=== PATIENT | female | born 1975 | race Two or more races ===

== ENCOUNTER 2025-03-26 13:52 | Emergency (ER) | payer BC, OTHER ==
[~2025-03-26] VITALS: Ht 162.6 cm; Wt 104.0 kg
[2025-03-26 13:54] VITALS: BP 146/98; PULSE 74; RESP 16; TEMP 97.6; O2SAT 96
[2025-03-26] MEDS ORDERED: AUG875T PO (14:14)
[2025-03-26] MEDS ORDERED: IBUP1TAB5 PO (14:14)
--- NOTE | 2025-03-26 14:14 | ED.PDOC ---
History of Present Illness(SKN HPI Comments This is a 49-year-old female who comes in with a cat bite to her right hand on Thursday evening. She states that she was not as concerned because there was really no cut just puncture. Although Thursday she started to have some swelling and pain so today who is having some difficulty opening up her hands b ecause of the slowing. Her tetanus is up-to-date. No fever chills vomiting. Patient states that she is diabetic but has been checking her sugar and it has been fine. Chief Complaint: Animal Bite Time Seen by MD: 14:08 History of Present Illness: Nurses Notes, Medications, Allergies Allergies: Coded Allergies: NO KNOWN ALLERGIES (Unverified , 03/26/25) Information Source: Patient Mode of Arrival: Ambulatory Severity: Mild Past Medical History PAST MEDICAL HISTORY: DM, High Lipids Surgical History: Denies all surgeries Social History Smoker: Cigarettes Alcohol: Rarely Drugs: Denies Drug Use Lives In: Home Integumetry: reports: wounds (Cat bite right hand) All Other Systems: Reviewed and Negative Physical Exam General Appearance: No Apparent Distress, Normal HEENT: Normal ENT Inspection, PERRL/EOMI, Pharynx Normal Neck: Full Range of Motion, Non-Tender, Normal Inspection, Supple Respiratory: Lungs Clear, No Respiratory Distress, Normal Breath Sounds Cardiovascular: Regular Rate/Rhythm Breast Exam: Deferred Gastrointestinal: Non Tender, Normal Bowel Sounds, Soft Genitalia: Deferred Pelvic: Deferred Rectal: Deferred Extremities: Swelling, Tender, Other (Right hand with some warmth over the palmar aspect to visible puncture [place] no drainage no fluctuance no induration, able to open and close her fingers) Neurologic: Alert, Normal Affect, Normal Mood Cerebellar Function: Normal Reflexes: Normal Skin: Normal Color, Warm Lymphatic: No Adenopathy Was a procedure done? Was a procedure done?: No Differential Diagnosis (INTG) Differential Diagnosis: Contusion, Hematoma X-Ray, Labs, Meds, VS Vital Signs Date Time Temp Pulse Resp B/P (MAP) Pulse Ox O2 Delivery O2 Flow Rate FiO2 03/26/25 13:54 97.6 74 16 146/98 96 97.6 X-Ray, Labs, Meds, VS Comment Patient seen and examined by me. Patient has a cat bite from this past Thursday now getting infected. Her tetanus is up-to-date I will place her on antibiotics. Instructed her to elevate her arm as much as possible I gave her warning signs and what to watch for if symptoms become worse she will have to come back. Time of 1ST Reevaluation: 14:11 Reevaluation 1ST: Improved Patient Education/Counseling: Diagnosis, Treatment, Prognosis, Need For Follow Up Family Education/Counseling: No Family Present SEPSIS Sepsis Screen Date sepsis recognized/suspect: Mar 26, 2025 Time Sepsis recognized/suspect: 1357 Recent Procedure: No On Antibiotic Therapy: No Respiratory Rate >20: No Heart Rate >90: No Temp<36 C (96.8 F) or >38.3 C: No SBP <90 or MAP <65 mmHG: No New Acute Mental Status Change: No Is the patient on CPAP, BIPAP,: No Vital Signs Date Time Temp Pulse Resp B/P (MAP) Pulse Ox O2 Delivery O2 Flow Rate FiO2 03/26/25 13:54 97.6 74 16 146/98 96 97.6 Departure 1 Departure Time of Disposition: 14:12 Impression: Primary Impression: Cat bite of hand Additional Impression: Cellulitis Disposition: 01 HOME / SELF CARE / HOMELESS Condition: Good Additional Instructions: Finish antibiotics as directed Continue to watch for increased redness drainage swelling if this occurs please come back to the ER he will need blood work and IV antibiotics e-Prescriptions Ibuprofen Micronized (Ibuprofen) 600 Mg Tab 600 MG PO Q6HPRN PRN for 5 Days, #20 TAB Prov: ZOILA AVINA [employer] 03/26/25 Amoxicillin & Pot Clavulanate (AUGMENTIN TABLET) 875 Mg Tb 875 MG PO BID for 10 Days, #20 TAB Prov: ZOILA AVINA [employer] 03/26/25 Discharged With: Self Critical Care Note Critical Care Time?: No Stability Stability form required: No ZOILA AVINA [employer] Mar 26, 2025 14:14
== END 2025-03-26 14:28 | disposition home or self-care (01) ==
LOC: ER 13:52
DX: S61.451A Open bite of right hand, initial encounter (principal); L03.90 Cellulitis, unspecified; F17.210 Nicotine dependence, cigarettes, uncomplicated; E11.9 Type 2 diabetes mellitus without complications; E78.5 Hyperlipidemia, unspecified; F10.90 Alcohol use, unspecified, uncomplicated; W55.01XA Bitten by cat, initial encounter; Y93.89 Activity, other specified; Y92.89 Other specified places as the place of occurrence of the external cause; Y99.8 Other external cause status; Y90.9 Presence of alcohol in blood, level not specified

== ENCOUNTER 2025-05-25 16:10 | Emergency (ER) | payer BC ==
[~2025-05-25] VITALS: Ht 162.6 cm; Wt 103.3 kg
[~2025-05-25 16:10] MED LIST: AUG875T PO; IBUP1TAB5 PO
[2025-05-25 16:12] VITALS: BP 155/87; PULSE 103; RESP 18; TEMP 97.9; O2SAT 99
[2025-05-25] MEDS ORDERED: SODIUM CHLORIDE 0.9% 1,000 ML IV ONE (16:30)
--- NOTE | 2025-05-25 17:07 | ED.PDOC ---
History of Present Illness(SKN HPI Comments 50y F who presents to the ED for chief complaint of abscess. Pt has a wound to the R side of her groin for the past 3x days with noted increased pain and came to the ED for further evaluation. Pt in the ED, states she had associated fever and took Tylenol which helped lower her fever but pt continued to have pain and came to the ED for evaluation. Pt in the ED, has no noted pus, redness, noted to groin area. Pt has noted history of DM. Pt denies any other symptoms at this time. Pt in the ED, states she does not want to stay and signed AMA and will seek care at another facility. Chief Complaint: Abscess Time Seen by MD: 17:04 History of Present Illness: Medications, Allergies Allergies: Coded Allergies: NO KNOWN ALLERGIES (Unverified , 03/26/25) Home Meds Active Scripts Ibuprofen Micronized (Ibuprofen) 600 Mg Tab, 600 MG PO Q6HPRN PRN for 5 Days, #20 TAB Prov:ZOILA AVINA [employer] 03/26/25 Amoxicillin & Pot Clavulanate (AUGMENTIN TABLET) 875 Mg Tb, 875 MG PO BID for 10 Days, #20 TAB Prov:ZOILA AVINA [facility] 03/26/25 Information Source: Patient, Relative Mode of Arrival: Ambulatory Brought in by: family member Past Medical History PAST MEDICAL HISTORY: DM, High Lipids Surgical History: Denies all surgeries Social History Smoker: Cigarettes Alcohol: Rarely Drugs: Denies Drug Use Lives In: Home Constitutional: denies: chills, diaphoresis, fatigue, fever, malaise, sweats, weakness, others EENTM: denies: blurred vision, double vision, ear bleeding, ear discharge, ear drainage, ear pain, ear ringing, eye pain, eye redness, hearing loss, mouth pain, mouth swelling, nasal discharge, nose bleeding, nose congestion, nose pain, photophobia, tearing, throat pain, throat swelling, voice changes, others Respiratory: denies: cough, hemoptysis, orthopnea, SOB at rest, shortness of b reath, SOB with excertion, stridor, wheezing, others Cardiovascular: denies: chest pain, dizzy spells, diaphoresis, Dyspnea on exertion, edema, irregular heart beat, left arm pain, lightheadedness, palpitations, PND, syncope, others Gastrointestinal: denies: abdomen distended, abdominal pain, blood streaked bowels, constipated, diarrhea, dysphagia, difficulty swallowing, hematemesis, melena, nausea, poor appetite, poor fluid intake, rectal bleeding, rectal pain, vomiting, others Genitourinary: denies: abnormal vagina bleeding, burning, dyspareunia, dysuria, flank pain, frequency, hematuria, incontinence, pain, , vagina discharge, urgency, others Neurological: denies: dizziness, fainting, headache, left sided numbness, left sided weakness, numbness, paresthesia, pre-existing deficit, right sided numbness, right sided weakness, seizure, speech problems, tingling, tremors, weakness, others Musculoskeletal: denies: back pain, gout, joint pain, joint swelling, muscle pain, muscle stiffness, neck pain, others Integumetry: reports: wounds (R groin); denies: bruises, change in color, change in hair/nails, dryness, laceration, lesions, lumps, rash, others Allergic/Immunocompromised: denies: Difficulty Healing, Frequent Infections, Hives, Itching, others Hematologic/Lymphatic: denies: anemia, blood clots, easy bleeding, easy bruising, swollen glands, others Endocrine: denies: excessive hunger, excessive sweating, excessive thirst, excessive urination, flushing, intolerance to cold, intolerance to heat, unexplained weight gain, unexplained weight loss, others Psychiatric: denies: anxiety, bipolar disorder, depression, hopeless, panic disorder, schizophrenia, sleepless, suicidal, others All Other Systems: Reviewed and Negative Physical Exam General Appearance: Moderate Distress HEENT: Normal ENT Inspection, Pharynx Normal, TMs Normal Neck: Full Range of Motion, Non-Tender, Normal, Normal Inspection Respiratory: Chest Non-Tender, Lungs Clear, No Accessory Muscle Use, No Respiratory Distress, Normal Breath Sounds Cardiovascular: No Edema, No JVD, No Murmur, No Gallop, Normal Peripheral Pulses, Regular Rate/Rhythm Breast Exam: Deferred Gastrointestinal: No Organomegaly, Non Tender, No Pulsatile Mass, Normal Bowel Sounds, Soft Genitalia: Deferred Pelvic: Deferred Rectal: Deferred Extremities: No calf tenderness, Normal capillary refill, Normal inspection, Normal range of motion, Non-tender, No pedal edema Musculoskeletal : Apperance: Normal Neurologic: Alert, [employer] piping designer II-XII nml as Tested, No Motor Deficits, Normal Affect, Normal Mood, No Sensory Deficits Cerebellar Function: Normal Reflexes: Normal Skin: Wounds (Right lower quadrant under the pannus) Peripheral Pulses: 3+ Radial (R), 3+ Radial (L) Lymphatic: No Adenopathy Was a procedure done? Was a procedure done?: No Differential Diagnosis (INTG) Differential Diagnosis: Cellulitis Differential Diagnosis: Cellulitis, Contact Dermatitis Abscess: Abscess, Bacteremia, Cellulitis X-Ray, Labs, Meds, VS Vital Signs Date Time Temp Pulse Resp B/P (MAP) Pulse Ox O2 Delivery O2 Flow Rate FiO2 05/25/25 16:12 97.9 103 18 155/87 99 97.9 Patient alert. Came in because of a wound in the right suprapubic area under the pannus. Vitals stable. Answering questions. No sign of any active lesion. She does have mild redness. She is diabetic. Explained to the patient that she will need antibiotics. She insists on going to another place. She wanted to leave. Tried to convince her to stay for antibiotics. Continue to monitor. Time of 1ST Reevaluation: 17:40 Reevaluation 1ST: Unchanged Patient Education/Counseling: Diagnosis, Treatment Family Education/Counseling: Diagnosis, Treatment SEPSIS Sepsis Screen Date sepsis recognized/suspect: May 25, 2025 Time Sepsis recognized/suspect: 4 Recent Procedure: No On Antibiotic Therapy: No Respiratory Rate >20: No Heart Rate >90: Yes Temp<36 C (96.8 F) or >38.3 C: No SBP <90 or MAP <65 mmHG: No New Acute Mental Status Change: No Is the patient on CPAP, BIPAP,: No Physician Orders Urinalysis (05/25/25 16:23) Vital Signs Date Time Temp Pulse Resp B/P (MAP) Pulse Ox O2 Delivery O2 Flow Rate FiO2 05/25/25 16:12 97.9 103 18 155/87 99 97.9 Departure 1 Departure Time of Disposition: 17:52 Impression: Primary Impression: Cellulitis Qualified Codes: L03.90 - Cellulitis, unspecified Disposition: 07 LEFT AGAINST MEDICAL ADVICE Condition: Good Critical Care Note Critical Care Time?: No Stability Stability form required: No Heart Score Heart Score: Heart Score Response (Comments) Value History N/A 0 EKG N/A 0 Age N/A 0 Risk Factors N/A 0 Troponin N/A 0 Total 0 I personally scribed for SHEREE POTTER MD ([email or web address]) on 05/25/25 at 17:07. Electronically submitted by Rey Lynne ([facility]). SHEREE POTTER MD May 25, 2025 17:07
== END 2025-05-25 16:33 | disposition left against medical advice (07) ==
LOC: ER 16:10
DX: L03.90 Cellulitis, unspecified (principal); E11.9 Type 2 diabetes mellitus without complications; F17.210 Nicotine dependence, cigarettes, uncomplicated; E78.5 Hyperlipidemia, unspecified